=== PATIENT | male | born 1955 | race Caucasian/White ===

== ENCOUNTER → 2019-05-15 | Outpatient (CLI) | payer BC, OTHER ==
[~2019-05-15] MED LIST: AMLO10TA82 PO; CEPH500C PO; ENAL20TA PO; HYDR-623 PO; NAPR220C11 PO
--- NOTE | 2019-05-15 10:44 | Diagnostic Imaging Report ---
INDICATION: Hypertension TECHNIQUE: Multiple real-time grayscale sonographic images, color and duplex Doppler images were obtained of the urinary system. FINDINGS: Aortic velocity: 82 cm/sec. RIGHT kidney: Size: 10.8 x 4.5 x 6.2 cm The right renal parenchyma and collecting system appear unremarkable. The right renal artery is visualized in its proximal, mid and distal aspect. Maximum renal artery velocity: 113cm/sec Maximum renal artery/aortic ratio: 1.4 LEFT kidney: Size: 10.8 x 5.1 x 4.9 cm The left renal parenchyma and collecting system appear unremarkable. The left renal artery is visualized in its proximal, mid and distal aspect. Maximum renal artery velocity: 97cm/sec Maximum renal artery/aortic ratio: 1.1 Bladder: There is presence of the left ureteral jet. The right jet not visualized but no findings to suggest obstruction. Urinary bladder appearing unremarkable. IMPRESSION: 1. Unremarkable renal ultrasound with doppler. (RA/AO ratios > 3.0 may suggest potential hemodynamically significant stenosis.) Dictated by: Dictated on workstation # [id number]
== END ==
LOC: RAD 08:37
PROVIDERS: ATTEND Family Medicine
DX: I10 Essential (primary) hypertension (principal)
CPT/HCPCS: 76770; 93975

== ENCOUNTER 2022-07-16 08:58 | Emergency (ER) | payer MEDICARE ==
[~2022-07-16] VITALS: Ht 167.7 cm; Wt 74.0 kg
--- NOTE | 2022-07-16 09:10 | ED Chest Pain ---
General Stated Complaint: RIGHT SIDE PAIN Source: patient Exam Limitations: no limitations History of Present Illness Date Seen by Provider: Jul 16, 2022 Time Seen by Provider: 08:58 Initial Comments Patient is a 66-year-old male who presents to the emergency department today with a chief complaint of right-sided chest pain. Patient states that he was up and about this morning and had a sudden onset of the pain after getting out of the shower. He has not taken anything for the pain. He states it hurts to take a deep breath. He does feel a little sweaty. No nausea. no recent fever or chills. No productive cough/hemoptysis. He did have a fall outside a week ago onto his right side - did not have this pain after the fall. No numbness, weakness or tingling. Former remote smoker years ago. All other ROS reviewed and negative except as stated. Timing/Duration: 1-3 hours (2hr) Severity/Quality: moderate ("6"), sharp Location: other (right chest) Radiation: no radiation Activities at Onset: none (showering) Modifying Factors: worse with breathing ASA po TELEHEALTH CASE MANAGER: No NTG SL TELEHEALTH CASE MANAGER: No Allergies and Home Medications Allergies Coded Allergies: No Known Drug Allergies (Unverified , 03/08/13) Patient Home Medication List Home Medication List Reviewed: Yes Amlodipine Besylate (Norvasc Tablet) 10 Mg Tablet, 1 EACH PO DAILY, (Reported) Entered as Reported by: JOSE MATHIS on 03/08/13 153 Cephalexin Monohydrate (Cephalexin) 500 Mg Capsule, 1 EACH PO QID, (Reported) Entered as Reported by: ISA FLORES on 03/15/13 1510 Enalapril Maleate (Enalapril Maleate) 20 Mg Tablet, 20 MG PO BID, (Reported) Entered as Reported by: JOSE MATHIS on 03/08/13 153 Hydrocodone Bit/Acetaminophen (Tolar 10-325 Tablet) 1 Tab Tablet, 1-2 EACH PO every 4-6 hours PRN, (Reported) Entered as Reported by: ISA FLORES on 03/15/13 151 Naproxen Sodium (Aleve) 220 Mg Capsule, 220 MG PO BID, (Reported) Entered as Reported by: JOSE MATHIS on 03/08/13 153 Review of Systems Review of Systems Constitutional: see HPI EENTM: No Symptoms Reported Respiratory: No Symptoms Reported Cardiovascular: Chest Pain Gastrointestinal: No Symptoms Reported Genitourinary: No Symptoms Reported Musculoskeletal: no symptoms reported Skin: no symptoms reported Psychiatric/Neurological: No Symptoms Reported All Other Systems Reviewed Negative Unless Noted: Yes Past Shlcogt-Dhjeyk-Kvcmpx Hx Past Medical History Reproductive Disorders: No Physical Exam Vital Signs Vital Signs - First Documented 07/16/22 09:00 Temp 36.6 Pulse 64 Resp 18 B/P (MAP) 169/94 (119) Pulse Ox 98 O2 Delivery Room Air Capillary Refill : Height, Weight, BMI Height: '" Weight: lbs. oz. kg; BMI Method: General Appearance: WD/WN, Anxious, Mild Distress HEENT: PERRL/EOMI Neck: Normal Inspection Respiratory: No Accessory Muscle Use, No Respiratory Distress, Other (diminished BS on the right. no creitance; no subQ air. no resp distress) Cardiovascular: Regular Rate, Rhythm, Normal Peripheral Pulses Progress/Results/Core Measures Results/Orders Lab Results Laboratory Tests Test 07/16/22 09:15 Range/Units White Blood Count 6.4 4.3-11.0 10^3/uL Red Blood Count 5.83 H 4.30-5.52 10^6/uL Hemoglobin 18.3 H 13.3-17.7 g/dL Hematocrit 49 40-54 % Mean Corpuscular Volume 85 80-99 fL Mean Corpuscular Hemoglobin 31 25-34 pg Mean Corpuscular Hemoglobin Concent 37 H 32-36 g/dL Red Cell Distribution Width 11.3 10.0-14.5 % Platelet Count 268 130-400 10^3/uL Mean Platelet Volume 8.9 L 9.0-12.2 fL Sodium Level 130 L 135-145 MMOL/L Potassium Level 2.9 L 3.6-5.0 MMOL/L Chloride Level 91 L 98-107 MMOL/L Carbon Dioxide Level 29 21-32 MMOL/L Anion Gap 10 5-14 MMOL/L Blood Urea Nitrogen 18 7-18 MG/DL Creatinine 1.01 0.60-1.30 MG/DL Estimat Glomerular Filtration Rate 83 BUN/Creatinine Ratio 18 Glucose Level 77 70-105 MG/DL Calcium Level 9.3 8.5-10.1 MG/DL My Orders Orders - JOSEPH ZAMARRIPA MD Ed Iv/Invasive Line Start (07/16/22 09:06) Cbc No Diff (07/16/22 09:06) Basic Metabolic Panel (07/16/22 09:06) Chest 1 View, Ap/Pa Only (07/16/22 09:06) Ekg Tracing (07/16/22 09:06) Ketorolac Injection (Toradol Injection) (07/16/22 09:15) Ct Angio Chest W (07/16/22 11:01) Fentanyl Inj (Sublimaze Injection) (07/16/22 11:15) Ns Iv 1000 Ml (Sodium Chloride 0.9%) (07/16/22 11:15) Iohexol Injection (Omnipaque 350 Mg/Ml 1 (07/16/22 11:15) Received Contrast (Hold Metformin- Contr (07/16/22 11:15) Ns (Ivpb) (Sodium Chloride 0.9% Ivpb Bag (07/16/22 11:15) Sodium Chloride Flush (Catheter Flush Sy (07/16/22 11:15) Medications Given in ED Current Medications Medications Dose Ordered Sig/Ana Route Start Time Stop Time Status Last Admin Dose Admin Fentanyl Citrate 50 mcg ONCE ONCE IVP 07/16/22 11:15 07/16/22 11:16 DC 07/16/22 11:24 50 MCG Iohexol 100 ml ONCE ONCE IV 07/16/22 11:15 07/16/22 11:17 DC 07/16/22 11:42 67 ML Ketorolac Tromethamine 15 mg ONCE ONCE IVP 07/16/22 09:15 07/16/22 09:16 DC 07/16/22 10:06 15 MG Sodium Chloride 10 ml NEEDED PRN IV 07/16/22 11:15 07/16/22 11:42 10 ML Sodium Chloride 100 ml ONCE ONCE IV 07/16/22 11:15 07/16/22 11:17 DC 07/16/22 11:42 80 ML Vital Signs/I&O 07/16/22 09:00 Temp 36.6 Pulse 64 Resp 18 B/P (MAP) 169/94 (119) Pulse Ox 98 O2 Delivery Room Air Initial ECG Impression Date: Jul 16, 2022 Initial ECG Impression Time: 11:13 Initial ECG Rate: 50 Initial ECG Rhythm: S.Felipe Initial ECG Intervals: Normal Initial ECG Impression: Normal Initial ECG Comparisson: No Previous ECG Available Diagnostic Imaging Diagonstic Imaging: CT Comments [facility] [place], [place] NAME: FABIOLA ROBBINS [facility] REC#: [id number] PT STATUS: REG ER : 1955 PHYSICIAN: JOSEPH ZAMARRIPA MD ADMIT DATE: 07/16/22/ER Draft Date of Exam:07/16/22 CT ANGIO CHEST W PROCEDURE: CT angiography of the chest with contrast. TECHNIQUE: Multiple contiguous axial images were obtained through the chest after uneventful bolus administration of intravenous contrast. 3D reconstructed CTA MIP acquisitions were also performed. Auto Exposure Controls were utilized during the CT exam to meet ALARA standards for radiation dose reduction. INDICATION: 66-year-old male, right-sided pleuritic chest pain. CORRELATION: None. FINDINGS: Heart size is within normal limits and without disproportionate right heart strain. Scattered coronary artery calcification. No pericardial effusion. Thoracic aortic contour is unremarkable with minimal wall calcification. There are a few shotty non pathologically enlarged mediastinal lymph nodes. There are also a few mildly prominent bilateral axillary lymph nodes. No pulmonary artery filling defect to suggest pulmonary embolism. 7 mm nodule in the medial left lower lobe. No pulmonary infiltrate. No significant pleural effusion. The visualized portions of the upper abdomen are unremarkable. Right posterior Bochdalek fat-containing hernia. The visualized osseous structures demonstrate no acute findings. IMPRESSION: 1. No CT evidence for pulmonary embolism. 2. Small, 7 mm nodule in the left lower lobe. Neoplasm is currently in the differential. Follow-up CT chest in approximately six months recommended. Dictated on workstation # [id number] Dict: 07/16/22 1157 Trans: 07/16/22 1231 AS6 [id number] Interpreted by: TAWNYA JUNE DO Electronically signed by: Diagonstic Imaging: Xray Comments [facility] [place], [place] NAME: FABIOLA ROBBINS [facility] REC#: [id number] PT STATUS: REG ER : 1955 PHYSICIAN: JOSEPH ZAMARRIPA MD ADMIT DATE: 07/16/22/ER Draft Date of Exam:07/16/22 CHEST 1 VIEW, AP/PA ONLY INDICATION: Chest pain. COMPARISON: None available. TECHNIQUE: Single frontal radiograph of the chest dated 07/16/2022. FINDINGS: The cardiac silhouette is within normal limits in size. No significant pulmonary vascular congestion. Focal opacities are noted within the medial right lung base. The lungs otherwise appear clear. No pleural effusion. No pneumothorax. No acute osseous abnormality. IMPRESSION: Mild right basilar opacities which are nonspecific and may relate to minimal infiltrate versus atelectasis. Given provided history of metastatic disease, malignancy is not excluded. Comparison to prior imaging is recommended. Dictated on workstation # [id number] Dict: 07/16/2249 Trans: 07/16/2254 [id number] Interpreted by: KALANI RAMIREZ MD Electronically signed by: Departure Impression Primary Impression: Chest pain Qualified Codes: R07.9 - Chest pain, unspecified Additional Impression: Pulmonary nodule Disposition: HOME, SELF-CARE Condition: Improved Departure-Patient Inst. Decision time for Depature: 12:39 Referrals: WINNIE HUNT MD (PCP/Family) Primary Care Physician Patient Instructions: Chest Pain That Is Not Caused by the Heart (DC) Add. Discharge Instructions: Over the counter Ibuprofen 3 pills every 6 hours as needed for pain. Try and concentrate on taking deep breaths often to keep your lungs well expanded and this will help you avoid getting pneumonia. If you develop a fever, productive cough, nausea and vomiting, please come back to the Emergency Department for re-evaluation. [place] call and follow up with your primary care provider next week. JOSEPH ZAMARRIPA MD Jul 16, 2022 09:10
[2022-07-16] MEDS ORDERED: KETOROLAC 30 MG/ML VIAL IVP ONE (09:15)
[2022-07-16 09:25] LABS: HEMATOCRIT 49 % (40-54); HEMOGLOBIN 18.3 g/dL (13.3-17.7); MEAN CORPUSCULAR HEMOGLOBIN 31 pg (25-34); MEAN CORPUSCULAR HGB CONC 37 g/dL (32-36); MEAN CORPUSCULAR VOLUME 85 fL (80-99); MEAN PLATELET VOLUME 8.9 fL (9.0-12.2); PLATELET COUNT 268 10^3/uL (130-400); WHITE BLOOD COUNT 6.4 10^3/uL (4.3-11.0)
[2022-07-16 09:36] LABS: POTASSIUM 2.9 MMOL/L (3.6-5.0)
[2022-07-16 09:37] LABS: CALCIUM 9.3 MG/DL (8.5-10.1)
[2022-07-16 09:41] LABS: CREATININE SERUM 1.01 MG/DL (0.60-1.30)
--- NOTE | 2022-07-16 09:54 | Diagnostic Imaging Report ---
INDICATION: Chest pain. COMPARISON: None available. TECHNIQUE: Single frontal radiograph of the chest dated 07/16/2022. FINDINGS: The cardiac silhouette is within normal limits in size. No significant pulmonary vascular congestion. Focal opacities are noted within the medial right lung base. The lungs otherwise appear clear. No pleural effusion. No pneumothorax. No acute osseous abnormality. IMPRESSION: Mild right basilar opacities which are nonspecific and may relate to minimal infiltrate versus atelectasis. Given provided history of metastatic disease, malignancy is not excluded. Comparison to prior imaging is recommended. Dictated by: Dictated on workstation # [id number]
[2022-07-16] MEDS ORDERED: NS IV 1000 ML 1,000 ML IV SCH (11:15)
[2022-07-16] MEDS ORDERED: fentaNYL INJ 100 MCG/2 ML AMP IVP ONE (11:15)
[2022-07-16] MEDS ORDERED: HOLD METFORMIN - RECEIVED CONTRAST 20 ML VIAL IV SCH (11:15)
[2022-07-16] MEDS ORDERED: NS 100 ML (IVPB) BAG IV ONE (11:15)
[2022-07-16] MEDS ORDERED: CATHETER FLUSH 10 ML SYR IV PRN (11:15)
[2022-07-16] MEDS ORDERED: IOHEXOL 350 MG/ML 100 ML (OMNIPAQUE 350) VIAL IV ONE (11:15)
--- NOTE | 2022-07-16 12:32 | Diagnostic Imaging Report ---
PROCEDURE: CT angiography of the chest with contrast. TECHNIQUE: Multiple contiguous axial images were obtained through the chest after uneventful bolus administration of intravenous contrast. 3D reconstructed CTA MIP acquisitions were also performed. Auto Exposure Controls were utilized during the CT exam to meet ALARA standards for radiation dose reduction. INDICATION: 66-year-old male, right-sided pleuritic chest pain. CORRELATION: None. FINDINGS: Heart size is within normal limits and without disproportionate right heart strain. Scattered coronary artery calcification. No pericardial effusion. Thoracic aortic contour is unremarkable with minimal wall calcification. There are a few shotty non pathologically enlarged mediastinal lymph nodes. There are also a few mildly prominent bilateral axillary lymph nodes. No pulmonary artery filling defect to suggest pulmonary embolism. 7 mm nodule in the medial left lower lobe. No pulmonary infiltrate. No significant pleural effusion. The visualized portions of the upper abdomen are unremarkable. Right posterior Bochdalek fat-containing hernia. The visualized osseous structures demonstrate no acute findings. IMPRESSION: 1. No CT evidence for pulmonary embolism. 2. Small, 7 mm nodule in the left lower lobe. Neoplasm is currently in the differential. Follow-up CT chest in approximately six months recommended. Dictated by: Dictated on workstation # [id number]
[2022-07-16 13:03] VITALS: BP 128/71
== END 2022-07-16 13:03 | disposition home or self-care (01) ==
LOC: EDUNIT# 08:58 → ER 08:59
DX: R91.1 Solitary pulmonary nodule (principal); R07.89 Other chest pain; Z87.891 Personal history of nicotine dependence; Z28.310 Unvaccinated for COVID-19
CPT/HCPCS: 36415; 71045; 71275; 80048; 85027; 93005